=== PATIENT | female | born 1995 ===

== ENCOUNTER 2016-03-18 15:07 | Emergency (ER) | payer SELFPAY ==
[~2016-03-18] VITALS: Ht 157.5 cm; Wt 65.9 kg
[2016-03-18 15:16] VITALS: BP 119/78; PULSE 104; RESP 16; O2SAT 99
--- NOTE | 2016-03-18 15:30 | ED.REPORT ---
HPI-Abd Pain F Under 40 Date of Service Mar 18, 2016 ED Provider: Manish Jackson DO Patient is a 20 year old female who is 13 weeks who presents to the ED complaining of severe, constant R flank pain that radiates to her groin onset __ _. Associated symptoms include ___. She denies fever, ____, or any other symptoms. Nursing Notes Stated Complaint: PAIN IN ABDOMINAL/13 WKS Chief Complaint: Female Abdominal Pain Nursing Notes Reviewed: Yes Allergies: Coded Allergies: Penicillins (Verified Allergy, Intermediate, rash, 03/18/16) Sulfa (Sulfonamide Antibiotics) (Verified Allergy, Intermediate, rash, 12/22) clindamycin (Verified Allergy, Intermediate, rash, 03/18/16) erythromycin base (Verified Allergy, Intermediate, rash, 03/18/16) Scheduled Vit W-Ca,Fe,FA(<1 mg) ( Vitamins) 1 Each Tablet 1 EACH PO DAILY Vits #90/Iron Fum/FA ( Formula Tablet) 1 Each Tablet 1 EACH PO DAILY General Time Seen by MD: 15:28 Chief Complaint Flank pain right Hx Obtained From: Patient Arrived By: Walk-in Past Medical History Past Medical History Healthy Past Surgical History Benign L breast tumor removal Smoking History Former Smoker Social History Drug Use: THC Ambulatory Status Independent Physical Exam Initial Vital Signs Vital Signs (First) Date Time Temp Pulse Resp B/P Pulse Ox O2 Delivery O2 Flow Rate FiO2 03/18/16 15:16 36.8 104 16 119/78 99 Room Air Interpretation & Diagnostics Lab Results Interpretation Result Diagram: 03/18/16 1615 Test 03/18/16 16:15 White Blood Count 11.1th/mm3 (3.8-10.1) Red Blood Count 4.98mil/mm3 (3.90-5.20) Hemoglobin 13.9g/dL (12.0-15.6) Hematocrit 39.2% (35.0-46.0) Mean Corpuscular Volume 78.7fL (81-100) Mean Corpuscular Hemoglobin 27.9pg (27.0-35.0) Mean Corpuscular Hemoglobin Concent 35.5% (32.0-37.0) Red Cell Distribution Width 13.3% (12.3-15.4) Platelet Count 382bil/L (150-400) Neutrophils (%) (Auto) 72.1% (40-74) Lymphocytes (%) (Auto) 20.6% (14-46) Monocytes (%) (Auto) 5.7% (4-12) Eosinophils (%) (Auto) 1.2% (0-5) Basophils (%) (Auto) 0.1% (0-3) Hold Purple Top Tube Received (Received) Hold Blue Top Tube Received (Received) Hold Urine Received (Received) HCG Beta Subunit [id number]/mL Hold Martin Top Tube Received (Received) Manish Jakcson DO Mar 18, 2016 15:30 KATIE VILLALOBOS Mar 18, 2016 15:58
--- NOTE | 2016-03-18 16:39 | ED.REPORT ---
HPI-Preg Under 20 Weeks Date of Service Mar 18, 2016 ED Provider: Sita Garcias Nursing Notes Stated Complaint: PAIN IN ABDOMINAL/13 WKS Chief Complaint: Female Abdominal Pain Nursing Notes Reviewed: Yes Allergies: Coded Allergies: Penicillins (Verified Allergy, Intermediate, rash, 03/18/16) Sulfa (Sulfonamide Antibiotics) (Verified Allergy, Intermediate, rash, 12/22) clindamycin (Verified Allergy, Intermediate, rash, 03/18/16) erythromycin base (Verified Allergy, Intermediate, rash, 03/18/16) Scheduled Vit W-Ca,Fe,FA(<1 mg) ( Vitamins) 1 Each Tablet 1 EACH PO DAILY Vits #90/Iron Fum/FA ( Formula Tablet) 1 Each Tablet 1 EACH PO DAILY General Time Seen by Provider: 16:00 Chief Complaint Abdominal cramping, Context: : Known 1st trim (home test), Preg [place] ( [facility] [place] ... (1) Hx Obtained From: Patient, Spouse Arrived By: Walk-in Onset Occurred: Just prior to arrival Symptom Duration: Waxes and wanes Progression Since Onset: Intermittent Location: : Flank bilateral (low back): Pelvis: Vagina Quality: Cramping, Heaviness Radiation: : None Severity: Current: Moderate Severity: Maximum: Moderate Associated with: Denies: Blood in urine, Dysuria, Fever, Hematuria, Nausea, Rash, Urinary frequency, Vaginal bleeding, Vaginal discharge Pertinent Negative: Pt denies other symptoms Relieved by: Remaining still Pertinent Negative: Exacerbated by nothing Recent Healthcare: No recent doctor visit Similar Sx Previous: No Past Medical History Past Medical History Healthy Past Surgical History Benign L breast tumor removal Smoking History Former Smoker Social History Drug Use: THC Ambulatory Status Independent Review of Systems Basic Review of Systems ENT: Hearing NL, No pain, No nasal congestion, No pharyngeal pain Endocrine: No cold intolerance, No heat intolerance, No weight gain, No weight loss Allergy / Immune: No allergy Psychiatric: Normal thought content Constitutional: Denies: Fatigue, Fever Respiratory: Denies: Dyspnea on exertion Cardiovascular: Denies: Chest pain GI: Denies: Abdominal pain Female: Reports: Pelvic pain, , Denies: Dysuria, Urinary frequency, Vaginal bleeding - abnl, Vaginal discharge Musculoskeletal: Reports: Back pain Hematologic: Denies Bleeding, Denies Bruising Skin: Denies Bruising, Denies Rash Neurologic: Denies: Headache Complete sys rev & neg: except as marked. Physical Exam Initial Vital Signs Vital Signs (First) Date Time Temp Pulse Resp B/P Pulse Ox O2 Delivery O2 Flow Rate FiO2 03/18/16 15:16 36.8 104 16 119/78 99 Room Air Initial VS: Reviewed Head / Eyes: Atraumatic, Normocephalic, PERRL ENT: Mucous membranes moist, Conjunctiva normal, No scleral icterus Neck: Supple, Non-tender, Full range of motion Respiratory: Breath sounds normal, Clear to auscultation, No respiratory distress Cardiovascular: Regular rate & rhythm, Heart sounds normal, Intact distal pulses Back: No CVA tenderness Lymphatic: No lymphadenopathy Extremities: Vascular intact, Neuro intact, No swelling, No tenderness Skin: Warm, Dry, No cyanosis Neurologic: Alert, Oriented, Nonfocal Psychiatric: Mood/affect normal, Behavior normal, Normal thought content General/Constitutional: Awake, Alert Distress / Hydration: Positive: Distress mild (tearful) Abdomen: Soft, Non-tender, No guarding, No rebound Female Genitourinary: Exam deferred : Exam deferred Interpretation & Diagnostics Lab Results Interpretation Result Diagram: 03/18/16 1615 Test 03/18/16 16:15 White Blood Count 11.1th/mm3 (3.8-10.1) Red Blood Count 4.98mil/mm3 (3.90-5.20) Hemoglobin 13.9g/dL (12.0-15.6) Hematocrit 39.2% (35.0-46.0) Mean Corpuscular Volume 78.7fL (81-100) Mean Corpuscular Hemoglobin 27.9pg (27.0-35.0) Mean Corpuscular Hemoglobin Concent 35.5% (32.0-37.0) Red Cell Distribution Width 13.3% (12.3-15.4) Platelet Count 382bil/L (150-400) Neutrophils (%) (Auto) 72.1% (40-74) Lymphocytes (%) (Auto) 20.6% (14-46) Monocytes (%) (Auto) 5.7% (4-12) Eosinophils (%) (Auto) 1.2% (0-5) Basophils (%) (Auto) 0.1% (0-3) Hold Purple Top Tube Received (Received) Hold Blue Top Tube Received (Received) Hold Urine Received (Received) HCG Beta Subunit [id number]/mL Hold [place] Top Tube Received (Received) Lab values outside NL range: no clinical significance. Lab Results Interpretation: Bhcg reassuring, rh + US Focused OB Exam Performed by: Allied health pract Exam Type: Diagnostic Clinical Category: Symptom-based Exam Interpreted by: Radiologist Indication: Quant hCG positive, by patient hx, Pelvic pain Findings: Intrauterine preg present Interpretation: Live intrauterine preg Discharge & Departure Primary Impression: Intrauterine normal Additional Impression: Dehydration, mild Disposition: Home Discharge Condition All VS Reviewed: Yes Condition: Improved Patient Instructions: Dehydration (ED) Additional Instructions: Your blood tests, urine, and ultrasound were all normal today. It looks like you were mildly dehydrated. This can certainly cause bladder irritation and is likely the cause of your pain. Be sure to drink plenty of water. I am giving you a referral to [facility] and a prescription for vitamins. Follow up with your regular doctor or return to Urgent Care for any other concerns. Referrals: NOPCP (PCP) Jessica Nj MD EDSupervising Provider for APC: Leno Vital MD, Lora L ARNP Mar 18, 2016 16:39
[2016-03-18 16:47] LABS: BASOPHILS % (AUTO) 0.1 % (0-3); EOSINOPHILS % (AUTO) 1.2 % (0-5); MONOCYTES % (AUTO) 5.7 % (4-12); Mean Corpuscular Hemoglobin 27.9 pg (27.0-35.0); Mean Corpuscular Volume 78.7 fL (81-100); NEUTROPHILS % (AUTO) 72.1 % (40-74); Platelet Count 382 bil/L (150-400)
[2016-03-18 16:52] VITALS: BP 113/63; PULSE 92; RESP 14; O2SAT 98
[2016-03-18] MEDS ORDERED: PREN1TAB87 PO (16:53)
[2016-03-18] MEDS ORDERED: 0.9% Sodium Chloride 1,000 ML IV ONE (17:05)
--- NOTE | 2016-03-18 18:15 | DRSVH ---
PROCEDURE: US OB<14 WKS+OB TRANSVAG INDICATIONS: pelvic pain, early pg r/o ectopic OUTSIDE/PRIOR DATING DATA: Last menstrual period (LMP): 12/18/15. LMP-based estimated date of delivery (RAMIRO): 09/23/16. First dating scan (date and location): 03/18/16. Estimated date of delivery (RAMIRO) from first dating scan: 09/22/16. TECHNIQUE: Real-time scanning was performed of the fetus and maternal pelvic organs, with image documentation. Endovaginal scanning was also performed to better visualize the fetus and maternal ovaries. COMPARISON: None. FINDINGS: Embryo: Single live intrauterine gestation is present with a crown-rump length of 6.9 cm for a gestat ional age of 13 weeks, one day. Measurement variability in dating: +/- 4 weeks by LMP, +/- 7 days by mean sac diameter (use before 6 weeks gestation if crown-rump length not able to be measured), +/- 5 days by crown-rump length (6-12 weeks gestation). Maternal organs: Ovaries have a normal appearance. There is a left corpus luteal cyst. Limited imag es through the kidneys demonstrate no hydronephrosis. IMPRESSION: 1. Single intrauterine gestation with a gestational age of 13 weeks, one day by crown-rump length. 2. Left corpus luteal cyst. Dictated by: Ela Higgins M.D. on 03/18/2016 at 18:12 Approved by: Ela Higgins M.D. on 03/18/2016 at 18:14
[2016-03-18] MEDS ORDERED: PREN-100 PO (18:57)
[2016-03-18 19:02] VITALS: BP 99/59; PULSE 87; RESP 16; O2SAT 99
== END 2016-03-18 19:25 | disposition home or self-care (01) ==
LOC: SED 15:07
DX: O26.891 Other specified pregnancy related conditions, first trimester (principal); E86.0 Dehydration; Z87.891 Personal history of nicotine dependence; Z88.0 Allergy status to penicillin; Z88.1 Allergy status to other antibiotic agents; Z88.2 Allergy status to sulfonamides; Z3A.13 13 weeks gestation of pregnancy
CPT/HCPCS: 36415; 76801; 76817; 84702; 85025; 96360; 99284; J7030